=== PATIENT | female | born 1990 ===

== ENCOUNTER → 2023-05-11 | Emergency (ER) | payer SELFPAY ==
[~2023-05-11] VITALS: Ht 167.6 cm; Wt 64.0 kg
[2023-05-11 16:00] VITALS: BP 114/73
== END | disposition left against medical advice (07) ==
LOC: ER 15:58 → EDBD 15:58
DX: R40.4 Transient alteration of awareness (principal); R53.1 Weakness; Z53.21 Procedure and treatment not carried out due to patient leaving prior to being seen by health care provider